=== PATIENT | male | born 1965 | race Caucasian/White ===

== ENCOUNTER 2017-07-05 06:04 | Emergency (ER) | payer OTHER, MEDICARE ==
[2017-07-05 06:08] VITALS: BP 141/89; PULSE 101; RESP 20; TEMP 97.9
[2017-07-05] MEDS ORDERED: MORPHINE SULFATE 4 MG/ML SYRINGE IM STA (06:14)
[2017-07-05] MEDS ORDERED: KETOROLAC 30 MG/ML 1 ML VIAL IM STA (06:14)
--- NOTE | 2017-07-05 06:19 | ED ---
General Adult HPI - General Chief complaint: Back Pain/Injury Stated complaint: Back Pain Time Seen by Provider: 07/05/17 06:06 Source: patient, RN notes reviewed, old records reviewed Mode of arrival: ambulatory Limitations: no limitations - History of Present Illness Initial comments: 52-year-old male with chronic back pain presenting with typical pain complaint. He has been out of his pain medication. 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 He normally takes Opana for his pain. He is not currently on any anti-inflammatories. Denies any new injury. Denies fever or chills. Denies any lower extremity weakness or numbness. No sensory changes. No bowel or bladder issues. He states his pain is unchanged from his chronic back pain. Denies chest pain or shortness of breath. Denies abdominal pain nausea vomiting. - Related Data Home Medications Medication Instructions Recorded Confirmed HYDROcodone/APAP 10-325MG [[place] 1 tab PO DAILY PRN 02/15/17 02/15/17 10-325] Ibuprofen [Motrin] 1,200 mg PO DAILY PRN 02/15/17 02/15/17 Previous Rx's Medication Instructions Recorded HYDROcodone/APAP 5-325MG [[place] 1 - 2 tab PO Q6HR PRN #20 tab 02/15/17 5-325] Ibuprofen [Motrin] 0 mg PO Q4-6H #30 tab 02/15/17 Allergies Allergy/AdvReac Type Severity Reaction Status Date / Time No Known Allergies Allergy Verified 07/05/17 06:08 Review of Systems ROS Statement: Those systems with pertinent positive or pertinent negative responses have been documented in the HPI. ROS Other: All systems not noted in ROS Statement are negative. Past Medical History Past Medical History: Musculoskeletal Disorder, Osteoarthritis (OA), Sleep Apnea /CPAP/BIPAP Additional Past Medical History / Comment(s): supposed to use CPAP, sciatica, back pain, grandpa-colon cancer History of Any Multi-Drug Resistant Organisms: None Reported Past Surgical History: Back Surgery, Joint Replacement, Orthopedic Surgery Additional Past Surgical History / Comment(s): right hip replaced, lung surg. related to pneumonia 2013, 3 toes amputated left foot related to crush injury Past Anesthesia/Blood Transfusion Reactions: No Reported Reaction Past Psychological History: No Psychological Hx Reported Smoking Status: Current every day smoker Past Alcohol Use History: None Reported Past Drug Use History: None Reported - Past Family History Mother Family Medical History: Cancer General Exam Limitations: no limitations General appearance: alert, in no apparent distress Head exam: Present: atraumatic, normocephalic Eye exam: Present: normal appearance, PERRL, EOMI Neck exam: Present: normal inspection. Absent: tenderness, meningismus Respiratory exam: Present: normal lung sounds bilaterally. Absent: respiratory distress, wheezes Cardiovascular Exam: Present: regular rate, normal rhythm GI/Abdominal exam: Present: soft. Absent: distended, tenderness Extremities exam: Present: normal inspection, normal capillary refill. Absent: pedal edema, calf tenderness Back exam: Present: paraspinal tenderness. Absent: vertebral tenderness Neurological exam: Present: alert, oriented X3, CN II-XII intact, normal gait, reflexes normal. Absent: motor sensory deficit Psychiatric exam: Present: normal affect, normal mood Skin exam: Present: warm, dry, intact Course Vital Signs 07/05/17 06:05 Temperature 97.9 F Pulse Rate 101 H Respiratory 20 Rate Blood Pressure 141/89 O2 Sat by Pulse 99 Oximetry Medical Decision Making - Medical Decision Making 52-year-old male with chronic back pain presenting with unchanged chronic back pain and need of medication refill. No alarming features on history or physical exam. Patient is given Toradol and intramuscular morphine in the emergency department. He will be prescribed a three-day course of [place] as well as Motrin. He shouldn't will follow-up with his primary care physician and will continue to make arrangements with a pain specialist. Disposition Clinical Impression: Chronic low back pain Disposition: HOME SELF-CARE Condition: Good Instructions: Chronic Back Pain (ED) Is patient prescribed a controlled substance at d/c from ED?: Yes If prescribed controlled substance>3 days was MAPS reviewed?: Yes When asked, does pt state using other controlled substances?: Yes Referrals: None,Stated [Primary Care Provider] - 1-2 days Tj Pierce MD [STAFF PHYSICIAN] - 1-2 days Time of Disposition: 06:17
== END 2017-07-05 06:27 | disposition home or self-care (01) ==
LOC: EC 06:04
DX: G89.29 Other chronic pain (principal); M54.5 Low back pain; F17.200 Nicotine dependence, unspecified, uncomplicated; Z79.891 Long term (current) use of opiate analgesic; Z98.890 Other specified postprocedural states
CPT/HCPCS: 99284; 96372 ×2; J2270; J1885

== ENCOUNTER 2021-02-13 16:15 | Emergency (ER) | payer BC ==
[2021-02-13 16:26] VITALS: BP 141/86; PULSE 82; RESP 18; TEMP 98.1
--- NOTE | 2021-02-13 16:37 | ED ---
General Adult HPI - General Chief complaint: Shortness of Breath Stated complaint: SOB Time Seen by Provider: 02/13/21 16:23 Source: patient, EMS, RN notes reviewed, old records reviewed Mode of arrival: EMS Limitations: no limitations - History of Present Illness Initial comments: 43-year-old male presenting for evaluation of hypoxia. Patient was seen at an outside clinic with cold-like symptoms. Patient had developed fatigue, vomiting and diarrhea. He was concerned that he had contracted coronavirus and was seeking evaluation at an urgent care. At this urgent care he was noted to be hypoxic in the 60s. He does complain of a mild cough but not significant dyspnea. Chest pain or abdominal pain. No lower extremity pain or swelling. - Related Data Home Medications Medication Instructions Recorded Confirmed Omeprazole 40 mg PO DAILY 12/21/18 12/29/18 DULoxetine HCL [Cymbalta] 30 mg PO HS 12/29/18 12/29/18 Previous Rx's Medication Instructions Recorded Baclofen 5 mg PO Q8H PRN #15 tablet 12/24/18 Naproxen [Naprosyn] 250 mg PO TID #15 tab 12/24/18 Docusate [Colace] 100 mg PO DAILY 10 Days #10 capsule 01/02/19 HYDROcodone/APAP 5-325MG [[place] 1 tab PO Q4HR PRN 3 Days #18 tab 01/02/19 5-325] Allergies Allergy/AdvReac Type Severity Reaction Status Date / Time No Known Allergies Allergy Verified 02/13/21 16:20 Review of Systems ROS Statement: Those systems with pertinent positive or pertinent negative responses have been documented in the HPI. ROS Other: All systems not noted in ROS Statement are negative. Past Medical History Past Medical History: No Reported History History of Any Multi-Drug Resistant Organisms: None Reported Past Surgical History: Back Surgery, Orthopedic Surgery Additional Past Surgical History / Comment(s): Amputation of left foot three toes. right hip replacement. right hand carpal tunnel sx Past Anesthesia/Blood Transfusion Reactions: No Reported Reaction Past Psychological History: No Psychological Hx Reported Smoking Status: Current every day smoker Past Alcohol Use History: Occasional - Past Family History Father Additional Family Medical History / Comment(s): parkinsons/dementia Mother Family Medical History: Thyroid Disorder Additional Family Medical History / Comment(s): pacer Brother(s) Family Medical History: No Reported History Son(s) Family Medical History: No Reported History Daughter(s) Family Medical History: No Reported History General Exam Limitations: no limitations General appearance: alert, in no apparent distress Head exam: Present: atraumatic, normocephalic Eye exam: Present: normal appearance, PERRL ENT exam: Present: mucous membranes dry Neck exam: Present: normal inspection. Absent: tenderness, meningismus Respiratory exam: Present: rales, decreased breath sounds. Absent: respiratory distress Cardiovascular Exam: Present: regular rate, normal rhythm GI/Abdominal exam: Present: soft. Absent: distended, tenderness, guarding Extremities exam: Present: normal inspection, normal capillary refill. Absent: pedal edema, calf tenderness Neurological exam: Present: alert, oriented X3, CN II-XII intact. Absent: motor sensory deficit Psychiatric exam: Present: normal affect, normal mood Skin exam: Present: warm, intact. Absent: cyanosis, diaphoretic Course Vital Signs 02/13/21 02/13/21 16:20 16:27 Temperature 98.1 F Pulse Rate 82 Respiratory 18 Rate Blood Pressure 141/86 O2 Sat by Pulse 85 L 94 L Oximetry EKG Findings - EKG Comments: EKG Findings:: ekg: Normal sinus rhythm, rate of 87, CO interval 172, QRS duration 100, QTC [address] segment elevation. Medical Decision Making - Medical Decision Making Documented in her on the wrong patient, [id number] - Lab Data Result diagrams: 02/13/21 16:42 02/13/21 16:42 Lab Results 02/13/21 02/13/21 02/13/21 Range/Units 16:42 16:42 16:42 WBC 5.2 (3.8-10.6) k/uL RBC 4.48 (4.30-5.90) m/uL Hgb 13.7 (13.0-17.5) gm/dL Hct 42.0 (39.0-53.0) % MCV 93.8 (80.0-100.0) fL MCH 30.6 (25.0-35.0) pg MCHC 32.6 (31.0-37.0) g/dL RDW 13.4 (11.5-15.5) % Plt Count 163 (150-450) k/uL MPV 7.8 Neutrophils % 68 % Lymphocytes % 27 % Monocytes % 4 % Eosinophils % 0 % Basophils % 1 % Neutrophils # 3.5 (1.3-7.7) k/uL Lymphocytes # 1.4 (1.0-4.8) k/uL Monocytes # 0.2 (0-1.0) k/uL Eosinophils # 0.0 (0-0.7) k/uL Basophils # 0.0 (0-0.2) k/uL Poikilocytosis Slight PT 9.7 (9.0-12.0) sec INR 0.9 (<1.2) APTT 25.9 (22.0-30.0) sec D-Dimer 1.09 H (<0.60) mg/L FEU Sodium (137-145) mmol/L Potassium (3.5-5.1) mmol/L Chloride (98-107) mmol/L Carbon Dioxide (22-30) mmol/L Anion Gap mmol/L BUN (9-20) mg/dL Creatinine (0.66-1.25) mg/dL Est GFR (CKD-EPI)AfAm (>60 ml/min/1.73 sqM) Est GFR (CKD-EPI)NonAf (>60 ml/min/1.73 sqM) Glucose (74-99) mg/dL Plasma Lactic Acid Jas (0.7-2.0) mmol/L Calcium (8.4-10.2) mg/dL Magnesium (1.6-2.3) mg/dL Total Bilirubin (0.2-1.3) mg/dL AST (17-59) U/L ALT (4-49) U/L Alkaline Phosphatase (38-126) U/L Troponin I (0.000-0.034) ng/mL NT-Pro-B Natriuret Pep pg/mL Total Protein (6.3-8.2) g/dL Albumin (3.5-5.0) g/dL Coronavirus (PCR) Detected A (Not Detectd) 02/13/21 02/13/21 02/13/21 Range/Units 16:42 16:42 16:42 WBC (3.8-10.6) k/uL RBC (4.30-5.90) m/uL Hgb (13.0-17.5) gm/dL Hct (39.0-53.0) % MCV (80.0-100.0) fL MCH (25.0-35.0) pg MCHC (31.0-37.0) g/dL RDW (11.5-15.5) % Plt Count (150-450) k/uL MPV Neutrophils % % Lymphocytes % % Monocytes % % Eosinophils % % Basophils % % Neutrophils # (1.3-7.7) k/uL Lymphocytes # (1.0-4.8) k/uL Monocytes # (0-1.0) k/uL Eosinophils # (0-0.7) k/uL Basophils # (0-0.2) k/uL Poikilocytosis PT (9.0-12.0) sec INR (<1.2) APTT (22.0-30.0) sec D-Dimer (<0.60) mg/L FEU Sodium 139 (137-145) mmol/L Potassium 3.2 L (3.5-5.1) mmol/L Chloride 98 (98-107) mmol/L Carbon Dioxide 35 H (22-30) mmol/L Anion Gap 6 mmol/L BUN 12 (9-20) mg/dL Creatinine 0.58 L (0.66-1.25) mg/dL Est GFR (CKD-EPI)AfAm >90 (>60 ml/min/1.73 sqM) Est GFR (CKD-EPI)NonAf >90 (>60 ml/min/1.73 sqM) Glucose 137 H (74-99) mg/dL Plasma Lactic Acid Jas 1.8 (0.7-2.0) mmol/L Calcium 7.8 L (8.4-10.2) mg/dL Magnesium 1.9 (1.6-2.3) mg/dL Total Bilirubin 0.7 (0.2-1.3) mg/dL AST 109 H (17-59) U/L ALT 101 H (4-49) U/L Alkaline Phosphatase 163 H (38-126) U/L Troponin I 0.106 H* (0.000-0.034) ng/mL NT-Pro-B Natriuret Pep pg/mL Total Protein 6.3 (6.3-8.2) g/dL Albumin 3.0 L (3.5-5.0) g/dL Coronavirus (PCR) (Not Detectd) 02/13/21 Range/Units 16:42 WBC (3.8-10.6) k/uL RBC (4.30-5.90) m/uL Hgb (13.0-17.5) gm/dL Hct (39.0-53.0) % MCV (80.0-100.0) fL MCH (25.0-35.0) pg MCHC (31.0-37.0) g/dL RDW (11.5-15.5) % Plt Count (150-450) k/uL MPV Neutrophils % % Lymphocytes % % Monocytes % % Eosinophils % % Basophils % % Neutrophils # (1.3-7.7) k/uL Lymphocytes # (1.0-4.8) k/uL Monocytes # (0-1.0) k/uL Eosinophils # (0-0.7) k/uL Basophils # (0-0.2) k/uL Poikilocytosis PT (9.0-12.0) sec INR (<1.2) APTT (22.0-30.0) sec D-Dimer (<0.60) mg/L FEU Sodium (137-145) mmol/L Potassium (3.5-5.1) mmol/L Chloride (98-107) mmol/L Carbon Dioxide (22-30) mmol/L Anion Gap mmol/L BUN (9-20) mg/dL Creatinine (0.66-1.25) mg/dL Est GFR (CKD-EPI)AfAm (>60 ml/min/1.73 sqM) Est GFR (CKD-EPI)NonAf (>60 ml/min/1.73 sqM) Glucose (74-99) mg/dL Plasma Lactic Acid Jas (0.7-2.0) mmol/L Calcium (8.4-10.2) mg/dL Magnesium (1.6-2.3) mg/dL Total Bilirubin (0.2-1.3) mg/dL AST (17-59) U/L ALT (4-49) U/L Alkaline Phosphatase (38-126) U/L Troponin I (0.000-0.034) ng/mL NT-Pro-B Natriuret Pep 1400 pg/mL Total Protein (6.3-8.2) g/dL Albumin (3.5-5.0) g/dL Coronavirus (PCR) (Not Detectd) Disposition Referrals: Brian Salvador MD [Primary Care Provider] - 1-2 days
[2021-02-13 16:50] LABS: Basophils % (A) 1 %; Eosinophils % (A) 0 %; HGB 13.7 gm/dL (13.0-17.5); Lymphocytes # (A) 1.4 k/uL (1.0-4.8); Lymphocytes % (A) 27 %; MCH 30.6 pg (25.0-35.0); MCHC 32.6 g/dL (31.0-37.0); MCV 93.8 fL (80.0-100.0); Mean Platelet Volume 7.8; Monocytes # (A) 0.2 k/uL (0-1.0); Monocytes % (A) 4 %; Neutrophils # (A) 3.5 k/uL (1.3-7.7); Neutrophils % (A) 68 %; Platelet Count 163 k/uL (150-450); Poikilocytosis Slight; RBC 4.48 m/uL (4.30-5.90); RDW 13.4 % (11.5-15.5); WBC 5.2 k/uL (3.8-10.6)
[2021-02-13 16:59] LABS: ALT 101 U/L (4-49); AST 109 U/L (17-59); African American GFR (CKD) >90 (>60 ml/min/1.73 sqM); Alkaline Phosphatase 163 U/L (38-126); Anion Gap 6 mmol/L; Blood Urea Nitrogen 12 mg/dL (9-20); Calcium 7.8 mg/dL (8.4-10.2); Carbon Dioxide 35 mmol/L (22-30); Chloride 98 mmol/L (98-107); Glucose 137 mg/dL (74-99); Magnesium 1.9 mg/dL (1.6-2.3); Non-African American GFR(CKD) >90 (>60 ml/min/1.73 sqM); Potassium 3.2 mmol/L (3.5-5.1); Sodium 139 mmol/L (137-145); Total Bilirubin 0.7 mg/dL (0.2-1.3); Total Protein 6.3 g/dL (6.3-8.2)
[2021-02-13] MEDS ORDERED: DEXAMETHASONE SOD PHOSPHATE 10 MG/ML 1 ML VIAL IV STA (16:59)
[2021-02-13] MEDS ORDERED: SODIUM CHLORIDE 0.9% 1,000 ML IV ONE (16:59)
[2021-02-13 17:03] LABS: INR 0.9 (<1.2); Partial Thromboplastin Time 25.9 sec (22.0-30.0); Prothrombin Time 9.7 sec (9.0-12.0)
== END 2021-02-13 19:01 ==
LOC: EDBD → EDUNIT# 16:15 → EC 16:15
DX: Z53.21 Procedure and treatment not carried out due to patient leaving prior to being seen by health care provider (principal)
CPT/HCPCS: 36415; 80053; 83605; 83735; 83880; 84484; 85025; 85379; 85610; 85730; 87635; 99499

== ENCOUNTER 2021-02-13 17:12 | Inpatient (IN) | payer MEDICARE, OTHER ==
[2021-02-13] MEDS ORDERED: IBUPROFEN 400 MG TAB PO PRN (17:21)
[2021-02-13] MEDS ORDERED: NALOXONE 0.4 MG/ML 1 ML VIAL IV PRN (17:21)
[2021-02-13] MEDS ORDERED: ONDANSETRON 4 MG/2 ML VIAL IVP PRN (17:21)
[2021-02-13] MEDS ORDERED: ACETAMINOPHEN TAB 325 MG TAB PO PRN (17:21)
[2021-02-13] MEDS ORDERED: ASPIRIN 325 MG TAB PO STA (17:22)
[2021-02-13] MEDS ORDERED: DEXAMETHASONE SOD PHOSPHATE 10 MG/ML 1 ML VIAL IV STA (17:27)
[2021-02-13] MEDS ORDERED: SODIUM CHLORIDE 0.9% 1,000 ML IV ONE (17:27)
[2021-02-13] MEDS ORDERED: ACETAMINOPHEN TAB 500 MG TAB PO STA (17:27)
--- NOTE | 2021-02-13 17:33 | ED ---
General Adult HPI - General Stated complaint: SOB Time Seen by Provider: 02/13/21 17:16 Source: patient, EMS, RN notes reviewed, old records reviewed - History of Present Illness Initial comments: 55-year-old male presenting for evaluation of hypoxia. Patient was seen at an outside clinic with cold-like symptoms. Patient had developed fatigue, vomiting and diarrhea. He was concerned that he had contracted coronavirus and was seeking evaluation at an urgent care. At this urgent care he was noted to be hypoxic in the 60s. He does complain of a mild cough but not significant dyspnea. Chest pain or abdominal pain. No lower extremity pain or swelling. - Related Data Home Medications Medication Instructions Recorded Confirmed Methadone Unknown Dose 140 mg PO DAILY 02/13/21 02/13/21 Allergies Allergy/AdvReac Type Severity Reaction Status Date / Time No Known Allergies Allergy Verified 02/13/21 18:05 Review of Systems ROS Statement: Those systems with pertinent positive or pertinent negative responses have been documented in the HPI. ROS Other: All systems not noted in ROS Statement are negative. Past Medical History Past Medical History: Musculoskeletal Disorder, Osteoarthritis (OA), Sleep Apnea/CPAP/BIPAP Additional Past Medical History / Comment(s): supposed to use CPAP, sciatica,back pain, grandpa-colon cancer History of Any Multi-Drug Resistant Organisms: None Reported Past Surgical History: Back Surgery, Joint Replacement, Orthopedic Surgery Additional Past Surgical History / Comment(s): right hip replaced, lung surg. related to pneumonia 2013, 3 toes amputated left foot related to crush injury Past Anesthesia/Blood Transfusion Reactions: No Reported Reaction Past Psychological History: No Psychological Hx Reported Past Alcohol Use History: None Reported Past Drug Use History: None Reported - Past Family History Mother Family Medical History: Cancer General Exam General appearance: alert, in distress Head exam: Present: atraumatic, normocephalic Eye exam: Present: normal appearance, PERRL ENT exam: Present: normal exam Neck exam: Present: normal inspection. Absent: tenderness, meningismus Respiratory exam: Present: respiratory distress, rales, decreased breath sounds Cardiovascular Exam: Present: regular rate, normal rhythm GI/Abdominal exam: Present: soft. Absent: distended, tenderness, guarding Extremities exam: Present: normal inspection, normal capillary refill. Absent: pedal edema Neurological exam: Present: alert, oriented X3, CN II-XII intact. Absent: motor sensory deficit Psychiatric exam: Present: normal affect, normal mood Skin exam: Present: warm, dry, intact. Absent: cyanosis, diaphoretic Course Vital Signs 02/13/21 17:43 Temperature 97.9 F Pulse Rate 76 Respiratory 20 Rate Blood Pressure 101/66 O2 Sat by Pulse 92 L Oximetry Medical Decision Making - Medical Decision Making 55-year-old male with Covid-like symptoms for the past one week. Patient tests positive for coronavirus. He has a normal CBC, he has an elevated d-dimer at 1.09. CT angiography has been ordered. laboratory studies were initially placed in a long patient count, he had a hypokalemia of 3.2. Normal kidney function, mild transaminitis, elevated troponin which is likely from hypoxia and demand. This level will be trended. Case discussed with Dr. Recio, who will admit. Repeat laboratory testing pending Critical Care Time Critical Care Time: Yes Total Critical Care Time: 35 Disposition Clinical Impression: COVID-19, Hypoxia Disposition: ADMITTED IP TO THIS [facility] Condition: Serious Is patient prescribed a controlled substance at d/c from ED?: No Referrals: None,Stated [Primary Care Provider] - 1-2 days Decision to Admit Reason: Admit from EC Decision Date: 02/13/21 Decision Time: 17:33
--- NOTE | 2021-02-13 17:42 | XR ---
EXAMINATION TYPE: XR chest 1V portable DATE OF EXAM: 02/13/2021 COMPARISON: 12/17/2012 HISTORY: Short of breath TECHNIQUE: Single view FINDINGS: There is moderate pulmonary interstitial and airspace edema. Heart is enlarged. There is pr obably right pleural effusion. Trachea is midline. Bony thorax is intact. IMPRESSION: There is moderately severe pulmonary edema which is new compared to last exam. There is r emoval of the right side chest tubes compared to old exam. Appearance of the lungs could relate to RD S. Heart failure not excluded.
--- NOTE | 2021-02-13 18:04 | CT ---
EXAMINATION TYPE: CT angio chest DATE OF EXAM: 02/13/2021 COMPARISON: 12/16/2012 HISTORY: Shortness of breath. CT DLP: 1000.2 mGycm Automated exposure control for dose reduction was used. CONTRAST: Performed with IV Contrast, patient injected with 100 mL of Isovue 370. There are 3-D post processed images. There is extensive patchy predominantly interstitial infiltrates in both lung amaya. There is some m ild nodular component at the periphery of both lungs. Heart appears borderline enlarged. There is no pericardial effusion. There are enlarged mediastinal lymph nodes up to 2.3 cm. There are multiple enl arged bronchial lymph nodes up to 1.5 cm. I see no evidence of filling defect in the pulmonary arteries. Thoracic aorta is intact. There is no aneurysm or dissection. There is no significant pleural fluid. Upper abdominal soft tissues are intac t. IMPRESSION: Mediastinal and bronchial adenopathy. Extensive pulmonary infiltrates. No evidence of pulmonary embol ism. There is clearing of the consolidation in the right lung and the right pleural effusion compared to o ld exam. There is a more diffuse pattern of the pulmonary infiltrate on today's exam. Mediastinal and bronchial adenopathy probably slightly improved compared to old exam.
[2021-02-13] MEDS ORDERED: ENOXAPARIN 40 MG/0.4 ML SYRINGE SQ STA (18:06)
[2021-02-13 19:29] LABS: Basophils % (A) 1 %; Eosinophils % (A) 0 %; HCT 39.8 % (39.0-53.0); HGB 12.9 gm/dL (13.0-17.5); Lymphocytes # (A) 1.1 k/uL (1.0-4.8); Lymphocytes % (A) 19 %; MCH 30.7 pg (25.0-35.0); MCHC 32.3 g/dL (31.0-37.0); MCV 94.8 fL (80.0-100.0); Mean Platelet Volume 7.5; Monocytes # (A) 0.2 k/uL (0-1.0); Monocytes % (A) 3 %; Neutrophils # (A) 4.2 k/uL (1.3-7.7); Neutrophils % (A) 76 %; Platelet Count 175 k/uL (150-450); Poikilocytosis Slight; RDW 13.9 % (11.5-15.5); WBC 5.6 k/uL (3.8-10.6)
[2021-02-13 19:34] LABS: ALT 96 U/L (4-49); AST 100 U/L (17-59); African American GFR (CKD) >90 (>60 ml/min/1.73 sqM); Albumin 2.7 g/dL (3.5-5.0); Alkaline Phosphatase 142 U/L (38-126); Anion Gap 5 mmol/L; Blood Urea Nitrogen 11 mg/dL (9-20); Calcium 7.4 mg/dL (8.4-10.2); Carbon Dioxide 35 mmol/L (22-30); Chloride 99 mmol/L (98-107); Glucose 100 mg/dL (74-99); Non-African American GFR(CKD) >90 (>60 ml/min/1.73 sqM); Potassium 3.5 mmol/L (3.5-5.1); Sodium 139 mmol/L (137-145); Total Bilirubin 0.4 mg/dL (0.2-1.3); Total Protein 5.7 g/dL (6.3-8.2)
--- NOTE | 2021-02-13 19:57 | P.HPIM ---
History of Present Illness H&P Date: 02/13/21 55-year-old male presenting for evaluation of hypoxia. Patient was seen at an outside clinic with cold-like symptoms. Patient had developed fatigue, vomiting and diarrhea. He was concerned that he had contracted coronavirus and was seeking evaluation at an urgent care. At this urgent care he was noted to be hypoxic in the 60s. He does complain of a mild cough but not significant dyspnea. Chest pain or abdominal pain. No lower extremity pain or swelling. Patient feels okay at this time Feels better after starting on oxygen Review of systems and systems has been reviewed all negative and positive findings as per history of present illness Constitutional: No acute distress, conversant, pleasant Eyes: Anicteric sclerae, moist conjunctiva, no lid-lag PERRLA ENMT: NC/AT Oropharynx clear, no erythema, exudates Neck: Supple, FROM, no masses, or JVD No carotid bruits No thyromegaly Lungs: , no accessory muscle use Cardiovascular: No peripheral edema Abdominal: Soft Nontender, no guarding, rebound or rigidity Abdomen moving with respiration Normoactive bowel sounds No hepatomegaly, No splenomegaly No palpable mass No abdominal wall hernia noted Skin: Normal temperature, tone, texture, turgor No induration No subcutaneous nodules No rash, lesions No ulcers Extremities: No digital cyanosis No clubbing Pedal pulses intact and symmetrical Radial pulses intact and symmetrical Normal gait and station No calf tenderness Psychiatric:Alert and oriented to person, place and time Appropriate affect Intact judgement Neuro: Muscles Strength 5/5 in all 4 extremities Sensation to light touch grossly present throughout Cranial nerves II-XII grossly intact No focal sensory deficits COVID-19 pneumonia we'll continue patient on Rocephin and Zithromax pulmonology has been consulted Continue patient on Decadron Acute hypoxic respiratory failure due to COVID-19 pneumonia Obesity No evidence of PE per CT scan DVT and GI prophylaxis Minimally elevated troponin is likely demand ischemia we will also consult cardiology with the patient on telemetry and repeat troponin Past Medical History Past Medical History: Musculoskeletal Disorder, Osteoarthritis (OA), Sleep Apnea/CPAP/BIPAP Additional Past Medical History / Comment(s): supposed to use CPAP, sciatica,back pain, grandpa-colon cancer History of Any Multi-Drug Resistant Organisms: None Reported Past Surgical History: Back Surgery, Joint Replacement, Orthopedic Surgery Additional Past Surgical History / Comment(s): right hip replaced, lung surg. related to pneumonia 2013, 3 toes amputated left foot related to crush injury Past Anesthesia/Blood Transfusion Reactions: No Reported Reaction Past Psychological History: No Psychological Hx Reported Past Alcohol Use History: None Reported Past Drug Use History: None Reported - Past Family History Mother Family Medical History: Cancer Medications and Allergies Home Medications Medication Instructions Recorded Confirmed Type Methadone Unknown Dose 140 mg PO DAILY 02/13/21 02/13/21 History Allergies Allergy/AdvReac Type Severity Reaction Status Date / Time No Known Allergies Allergy Verified 02/13/21 18:05 Physical Exam Vitals: Vital Signs Temp Pulse Resp BP Pulse Ox 02/13/21 17:43 97.9 F 76 20 101/66 92 L Intake and Output 02/13/21 02/13/21 02/13/21 06:59 14:59 22:59 Other: Weight 136.078 kg Results CBC & Chem 7: 02/13/21 19:24 02/13/21 19:24 Labs: Abnormal Lab Results - Last 24 Hours (Table) 02/13/21 02/13/21 02/13/21 Range/Units 19:01 19:24 19:24 RBC 4.20 L (4.30-5.90) m/uL Hgb 12.9 L (13.0-17.5) gm/dL Carbon Dioxide 35 H (22-30) mmol/L Creatinine 0.53 L (0.66-1.25) mg/dL Glucose 100 H (74-99) mg/dL Calcium 7.4 L (8.4-10.2) mg/dL AST 100 H (17-59) U/L ALT 96 H (4-49) U/L Alkaline Phosphatase 142 H (38-126) U/L Troponin I 0.093 H* (0.000-0.034) ng/mL Total Protein 5.7 L (6.3-8.2) g/dL Albumin 2.7 L (3.5-5.0) g/dL
[2021-02-13] MEDS: SODIUM CHLORIDE 0.9% 1,000 ML IV SCH (20:28)
[2021-02-13] MEDS: AZITHROMYCIN 500 MG in SODIUM CHLORIDE 0.9% 250 ML IVPB SCH (21:37)
[2021-02-14 07:29] LABS: Basophils % (A) 0 %; Eosinophils % (A) 0 %; HCT 40.1 % (39.0-53.0); HGB 12.7 gm/dL (13.0-17.5); Lymphocytes # (A) 0.8 k/uL (1.0-4.8); Lymphocytes % (A) 24 %; MCHC 31.6 g/dL (31.0-37.0); MCV 94.7 fL (80.0-100.0); Mean Platelet Volume 7.7; Monocytes # (A) 0.1 k/uL (0-1.0); Monocytes % (A) 3 %; Neutrophils # (A) 2.3 k/uL (1.3-7.7); Neutrophils % (A) 71 %; Platelet Count 174 k/uL (150-450); RBC 4.23 m/uL (4.30-5.90); RDW 13.5 % (11.5-15.5); WBC 3.3 k/uL (3.8-10.6)
[2021-02-14 07:42] LABS: ALT 85 U/L (4-49); AST 79 U/L (17-59); African American GFR (CKD) >90 (>60 ml/min/1.73 sqM); Albumin 2.8 g/dL (3.5-5.0); Alkaline Phosphatase 143 U/L (38-126); Anion Gap 5 mmol/L; Blood Urea Nitrogen 10 mg/dL (9-20); Calcium 7.5 mg/dL (8.4-10.2); Carbon Dioxide 34 mmol/L (22-30); Chloride 102 mmol/L (98-107); Glucose 135 mg/dL (74-99); Non-African American GFR(CKD) >90 (>60 ml/min/1.73 sqM); Potassium 3.8 mmol/L (3.5-5.1); Sodium 141 mmol/L (137-145); Total Bilirubin 0.5 mg/dL (0.2-1.3)
[2021-02-14] MEDS: DEXAMETHASONE SOD PHOSPHATE 10 MG/ML 1 ML VIAL IVP SCH (09:21)
[2021-02-14] MEDS: ENOXAPARIN 40 MG/0.4 ML SYRINGE SQ SCH (09:21)
[2021-02-14] MEDS: SODIUM CHLORIDE 0.9% 1,000 ML IV SCH (09:30)
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
--- NOTE | 2021-02-14 12:07 | P.PN ---
Subjective Progress Note Date: 02/14/21 No new complaints today. 6 L oxygen requirement, saturating 94%. Does not appear to be in distress. Coached on nutrition and self pronating today. Objective - Vital Signs Vital signs: Vital Signs Temp 98.2 F 02/14/21 03:20 Pulse 82 02/14/21 03:20 Resp 20 02/14/21 03:20 BP 147/88 02/14/21 03:20 Pulse Ox 94 L 02/14/21 03:20 Intake & Output 02/13/21 02/14/21 02/14/21 18:59 06:59 18:59 Intake Total 50 240 Output Total 1450 200 Balance -1400 40 Weight 136.078 kg 150.5 kg Intake: Oral 50 240 Output: Urine 1450 200 - Exam Gen: awake, alert HEENT: normocephalic, atraumatic, good hearing acuity, moist mucous membranes Resp: good air exchange, breathing comfortably with no accessory muscle use CVS: good distal perfusion x 4, GI: soft, NTTP, ND : no SPT, no CVAT, ramirez catheter not present MSK: no pitting edema, no clubbing Neuro: non-focal, moving all extremities Psych: cooperative, euthymic mood - Labs CBC & Chem 7: 02/14/21 06:43 02/14/21 06:43 Labs: Abnormal Lab Results - Last 24 Hours (Table) 02/13/21 02/13/21 02/13/21 Range/Units 19:01 19:24 19:24 WBC (3.8-10.6) k/uL RBC 4.20 L (4.30-5.90) m/uL Hgb 12.9 L (13.0-17.5) gm/dL Lymphocytes # (1.0-4.8) k/uL Carbon Dioxide 35 H (22-30) mmol/L Creatinine 0.53 L (0.66-1.25) mg/dL Glucose 100 H (74-99) mg/dL Calcium 7.4 L (8.4-10.2) mg/dL AST 100 H (17-59) U/L ALT 96 H (4-49) U/L Alkaline Phosphatase 142 H (38-126) U/L Troponin I 0.093 H* (0.000-0.034) ng/mL Total Protein 5.7 L (6.3-8.2) g/dL Albumin 2.7 L (3.5-5.0) g/dL 02/14/21 02/14/21 Range/Units 06:43 06:43 WBC 3.3 L (3.8-10.6) k/uL RBC 4.23 L (4.30-5.90) m/uL Hgb 12.7 L (13.0-17.5) gm/dL Lymphocytes # 0.8 L (1.0-4.8) k/uL Carbon Dioxide 34 H (22-30) mmol/L Creatinine 0.49 L (0.66-1.25) mg/dL Glucose 135 H (74-99) mg/dL Calcium 7.5 L (8.4-10.2) mg/dL AST 79 H (17-59) U/L ALT 85 H (4-49) U/L Alkaline Phosphatase 143 H (38-126) U/L Troponin I (0.000-0.034) ng/mL Total Protein 6.0 L (6.3-8.2) g/dL Albumin 2.8 L (3.5-5.0) g/dL Assessment and Plan Assessment: ARDS secondary to Covid 19 Acute hypoxemic respiratory failure -Admit to inpatient, telemetry, contact/droplet -Pulmonary consult -Dexamethasone -On IV antibiotics, pending pro-calcitonin level -Vitamin C/D, zinc -Daily inflammatory labs -Oxygen as needed Obesity class III Chronic pain -Outpatient weight loss referral -Resume home dose of methadone Patient is a full code DVT prophylaxis with enoxaparin
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
[2021-02-14] MEDS: AZITHROMYCIN 500 MG in SODIUM CHLORIDE 0.9% 250 ML IVPB SCH (12:35)
[2021-02-14] MEDS: METHADONE 10 MG TAB PO SCH (12:42)
[2021-02-14] MEDS: ASCORBIC ACID 500 MG TAB PO SCH (12:42)
[2021-02-14] MEDS: CHOLECALCIFEROL 25 MCG (1000 IU) TABLET PO SCH (12:42)
[2021-02-14] MEDS: ZINC SULFATE 220 MG CAP PO SCH (12:42)
[2021-02-14] MEDS: lisinopriL 5 MG TAB PO SCH (12:42)
[2021-02-14 13:00] LABS: C Reactive Protein 5.2 mg/dL (<1.0)
[2021-02-15] MEDS: SODIUM CHLORIDE 0.9% 1,000 ML IV SCH ×3 (03:46→22:07)
[2021-02-15 06:52] LABS: Basophils % (A) 0 %; Eosinophils % (A) 0 %; HCT 38.1 % (39.0-53.0); HGB 11.9 gm/dL (13.0-17.5); Lymphocytes % (A) 18 %; MCH 29.6 pg (25.0-35.0); MCHC 31.1 g/dL (31.0-37.0); MCV 95.2 fL (80.0-100.0); Mean Platelet Volume 7.8; Monocytes # (A) 0.4 k/uL (0-1.0); Monocytes % (A) 7 %; Neutrophils # (A) 4.2 k/uL (1.3-7.7); Neutrophils % (A) 72 %; Platelet Count 229 k/uL (150-450); RDW 13.4 % (11.5-15.5); WBC 5.8 k/uL (3.8-10.6)
[2021-02-15 07:45] LABS: ALT 67 U/L (4-49); AST 48 U/L (17-59); African American GFR (CKD) >90 (>60 ml/min/1.73 sqM); Alkaline Phosphatase 125 U/L (38-126); Anion Gap 6 mmol/L; Bilirubin, Delta 0.2 mg/dL (0.0-0.2); Bilirubin,Unconjugated 0.2 mg/dL (0.0-1.1); Blood Urea Nitrogen 15 mg/dL (9-20); C Reactive Protein 2.6 mg/dL (<1.0); Calcium 7.9 mg/dL (8.4-10.2); Carbon Dioxide 34 mmol/L (22-30); Chloride 101 mmol/L (98-107); Glucose 109 mg/dL (74-99); LDH 1028 U/L (313-618); Magnesium 2.1 mg/dL (1.6-2.3); Non-African American GFR(CKD) >90 (>60 ml/min/1.73 sqM); Potassium 3.8 mmol/L (3.5-5.1); Sodium 141 mmol/L (137-145); Total Bilirubin 0.4 mg/dL (0.2-1.3); Total Protein 6.2 g/dL (6.3-8.2)
[2021-02-15] MEDS: AZITHROMYCIN 500 MG in SODIUM CHLORIDE 0.9% 250 ML IVPB SCH (10:07)
[2021-02-15] MEDS: DEXAMETHASONE SOD PHOSPHATE 10 MG/ML 1 ML VIAL IVP SCH (10:08)
[2021-02-15] MEDS: FUROSEMIDE 10 MG/ML 4 ML VIAL IV SCH (10:08)
[2021-02-15] MEDS: METHADONE 10 MG TAB PO SCH (10:09)
[2021-02-15] MEDS: ZINC SULFATE 220 MG CAP PO SCH (10:09)
[2021-02-15] MEDS: CHOLECALCIFEROL 25 MCG (1000 IU) TABLET PO SCH (10:09)
[2021-02-15] MEDS: lisinopriL 5 MG TAB PO SCH (10:09)
[2021-02-15] MEDS: ENOXAPARIN 40 MG/0.4 ML SYRINGE SQ SCH (10:14)
[2021-02-15] MEDS: ASCORBIC ACID 500 MG TAB PO SCH (10:16)
--- NOTE | 2021-02-15 10:33 | P.PN ---
Subjective Progress Note Date: 02/15/21 No new complaints today. BNP was elevated, PC was high. Echo and lasix ordered. Cardiology following. Objective - Vital Signs Vital signs: Vital Signs Temp 97.6 F 02/15/21 03:55 Pulse 67 02/15/21 03:55 Resp 20 02/15/21 03:55 BP 146/73 02/15/21 03:55 Pulse Ox 92 L 02/15/21 03:55 Intake & Output 02/14/21 02/15/21 02/15/21 18:59 06:59 18:59 Intake Total 760 1587 118 Output Total 1100 1350 Balance -340 237 118 Intake: IV 20 Invasive Line 2 20 Intake, IV Titration 750 Amount Sodium Chloride 0.9% 1, 750 000 ml @ 75 mls/hr IV . [id number] Rx#:[id number] Oral 740 837 118 Output: Urine 1100 1350 - Exam Gen: awake, alert HEENT: normocephalic, atraumatic, good hearing acuity, moist mucous membranes Resp: good air exchange, breathing comfortably with no accessory muscle use CVS: good distal perfusion x 4, GI: soft, NTTP, ND : no SPT, no CVAT, ramirez catheter not present MSK: no pitting edema, no clubbing Neuro: non-focal, moving all extremities Psych: cooperative, euthymic mood - Labs CBC & Chem 7: 02/15/21 05:39 02/15/21 05:39 Labs: Abnormal Lab Results - Last 24 Hours (Table) 02/14/21 02/14/21 02/14/21 Range/Units 06:43 10:20 11:47 RBC (4.30-5.90) m/uL Hgb (13.0-17.5) gm/dL Hct (39.0-53.0) % D-Dimer 1.52 H (<0.60) mg/L FEU Carbon Dioxide (22-30) mmol/L Creatinine (0.66-1.25) mg/dL Glucose (74-99) mg/dL Calcium (8.4-10.2) mg/dL ALT (4-49) U/L Lactate Dehydrogenase (313-618) U/L Troponin I 0.040 H* (0.000-0.034) ng/mL C-Reactive Protein (<1.0) mg/dL Total Protein (6.3-8.2) g/dL Albumin (3.5-5.0) g/dL Procalcitonin 3.09 H (0.02-0.09) ng/mL Coronavirus (PCR) (Not Detectd) 02/14/21 02/14/21 02/15/21 Range/Units 11:47 18:04 05:39 RBC 4.00 L (4.30-5.90) m/uL Hgb 11.9 L (13.0-17.5) gm/dL Hct 38.1 L (39.0-53.0) % D-Dimer (<0.60) mg/L FEU Carbon Dioxide (22-30) mmol/L Creatinine (0.66-1.25) mg/dL Glucose (74-99) mg/dL Calcium (8.4-10.2) mg/dL ALT (4-49) U/L Lactate Dehydrogenase 1444 H (313-618) U/L Troponin I (0.000-0.034) ng/mL C-Reactive Protein 5.2 H (<1.0) mg/dL Total Protein (6.3-8.2) g/dL Albumin (3.5-5.0) g/dL Procalcitonin (0.02-0.09) ng/mL Coronavirus (PCR) Detected A (Not Detectd) 02/15/21 02/15/21 Range/Units 05:39 05:39 RBC (4.30-5.90) m/uL Hgb (13.0-17.5) gm/dL Hct (39.0-53.0) % D-Dimer 1.32 H (<0.60) mg/L FEU Carbon Dioxide 34 H (22-30) mmol/L Creatinine 0.48 L (0.66-1.25) mg/dL Glucose 109 H (74-99) mg/dL Calcium 7.9 L (8.4-10.2) mg/dL ALT 67 H (4-49) U/L Lactate Dehydrogenase 1028 H (313-618) U/L Troponin I (0.000-0.034) ng/mL C-Reactive Protein 2.6 H (<1.0) mg/dL Total Protein 6.2 L (6.3-8.2) g/dL Albumin 3.0 L (3.5-5.0) g/dL Procalcitonin (0.02-0.09) ng/mL Coronavirus (PCR) (Not Detectd) Assessment and Plan Assessment: ARDS secondary to Covid 19 Acute hypoxemic respiratory failure Acute on Chronic Heart Failure, unspecified EF, echo pending -Admit to inpatient, telemetry, contact/droplet -Pulmonary consult -Dexamethasone -On IV antibiotics, pending pro-calcitonin level -Vitamin C/D, zinc -Daily inflammatory labs -Oxygen as needed -echo pending -lasix 40mg IV daily -cardiology following Obesity class III Chronic pain -Outpatient weight loss referral -Resume home dose of methadone Patient is a full code DVT prophylaxis with enoxaparin
--- NOTE | 2021-02-15 12:37 | P.PN ---
Subjective Progress Note Date: 02/15/21 Principal diagnosis: This is a 55-year-old male patient with a known history of chronic pain issues and is maintained on methadone in the outpatient setting. He states he's been a ttending a clinic that is requiring [id number] meetings in order to keep his methadone prescription. While there he mentioned he was having cold-like symptoms and had developed fatigue, nausea and diarrhea. He was found to be hypoxemic with O2 saturations in the 60s. He was referred here to the emergency room for the same. He denied any significant shortness of breath cough or congestion. No chest pain. He states his original symptoms started about 2 weeks ago now. He did test positive for Carter virus by PCR. Chest x-ray reveals moderate pulmonary interstitial and airspace edema/infiltrate. CT angiogram revealed no evidence of pulmonary embolism. There is mediastinal bronchial adenopathy. There is extensive pulmonary infiltrates. Of note, the patient had a previous empyema requiring surgery and chest tube placement back in 2012. He is currently on 6 L high flow nasal cannula to maintain O2 saturation in the 90s. He is a smoker. He is not vaccinated. Outside the window for Remdesivir. He's been initiated on antibiotics per medicine. He is on Decadron, Lovenox. The patient is seen today 02/15/2021 in follow-up on the selective care unit. He is currently resting quite comfortably in bed. Actually laying flat. Denies any worsening shortness of breath, cough or congestion. He is requiring 6 L high flow nasal cannula to maintain O2 saturations in the 90s. No fever or chills. White count 5.8. Hemoglobin 11.9. D-dimer 1.32. Sodium 141. Potassium 3.8. Creatinine 0.48. LDH 1028. C-reactive protein 2.6. Procalcitonin 3.09. He remains on ceftriaxone and azithromycin. Continued on Decadron, Lovenox, vitamin supplements. He's been initiated on IV diuretics. Objective - Vital Signs Vital signs: Vital Signs Temp 98.2 F 02/15/21 07:30 Pulse 67 02/15/21 07:30 Resp 20 02/15/21 08:00 BP 148/75 02/15/21 07:30 Pulse Ox 91 L 02/15/21 07:30 Intake & Output 12/02/15/21 02/15/21 18:59 06:59 18:59 Intake Total 760 1587 128 Output Total 1100 1350 Balance -340 237 128 Weight 150.3 kg Intake: IV 20 10 Invasive Line 2 20 10 Intake, IV Titration 750 Amount Sodium Chloride 0.9% 1, 750 000 ml @ 75 mls/hr IV . [id number] [facility] Rx#:[id number] Oral 740 837 118 Output: Urine 1100 1350 - Exam GENERAL EXAM: Alert, pleasant 55-year-old gentleman, on 6 L nasal cannula comfortable in no apparent distress. HEAD: Normocephalic. EYES: Normal reaction of pupils, equal size. NOSE: Clear with pink turbinates. THROAT: No erythema or exudates. NECK: No masses, no JVD. CHEST: No chest wall deformity. LUNGS: Equal air entry with crackles in the bilateral bases. CVS: S1 and S2 normal with no audible murmur, regular rhythm. ABDOMEN: No hepatosplenomegaly, normal bowel sounds, no guarding or rigidity. SPINE: No scoliosis or deformity SKIN: No rashes CENTRAL NERVOUS SYSTEM: No focal deficits, tone is normal in all 4 extremities. EXTREMITIES: There is no peripheral edema. No clubbing, no cyanosis. Peripheral pulses are intact. - Labs CBC & Chem 7: 02/15/21 05:39 02/15/21 05:39 Labs: Abnormal Lab Results - Last 24 Hours (Table) 02/14/21 02/14/21 02/14/21 Range/Units 06:43 11:47 11:47 RBC (4.30-5.90) m/uL Hgb (13.0-17.5) gm/dL Hct (39.0-53.0) % D-Dimer 1.52 H (<0.60) mg/L FEU Carbon Dioxide (22-30) mmol/L Creatinine (0.66-1.25) mg/dL Glucose (74-99) mg/dL Calcium (8.4-10.2) mg/dL ALT (4-49) U/L Lactate Dehydrogenase 1444 H (313-618) U/L C-Reactive Protein 5.2 H (<1.0) mg/dL Total Protein (6.3-8.2) g/dL Albumin (3.5-5.0) g/dL Procalcitonin 3.09 H (0.02-0.09) ng/mL Coronavirus (PCR) (Not Detectd) 02/14/21 02/15/21 02/15/21 Range/Units 18:04 05:39 05:39 RBC 4.00 L (4.30-5.90) m/uL Hgb 11.9 L (13.0-17.5) gm/dL Hct 38.1 L (39.0-53.0) % D-Dimer 1.32 H (<0.60) mg/L FEU Carbon Dioxide (22-30) mmol/L Creatinine (0.66-1.25) mg/dL Glucose (74-99) mg/dL Calcium (8.4-10.2) mg/dL ALT (4-49) U/L Lactate Dehydrogenase (313-618) U/L C-Reactive Protein (<1.0) mg/dL Total Protein (6.3-8.2) g/dL Albumin (3.5-5.0) g/dL Procalcitonin (0.02-0.09) ng/mL Coronavirus (PCR) Detected A (Not Detectd) 02/15/21 Range/Units 05:39 RBC (4.30-5.90) m/uL Hgb (13.0-17.5) gm/dL Hct (39.0-53.0) % D-Dimer (<0.60) mg/L FEU Carbon Dioxide 34 H (22-30) mmol/L Creatinine 0.48 L (0.66-1.25) mg/dL Glucose 109 H (74-99) mg/dL Calcium 7.9 L (8.4-10.2) mg/dL ALT 67 H (4-49) U/L Lactate Dehydrogenase 1028 H (313-618) U/L C-Reactive Protein 2.6 H (<1.0) mg/dL Total Protein 6.2 L (6.3-8.2) g/dL Albumin 3.0 L (3.5-5.0) g/dL Procalcitonin (0.02-0.09) ng/mL Coronavirus (PCR) (Not Detectd) Assessment and Plan Assessment: 1 Acute hypoxemic respiratory failure secondary to COVID-19 pneumonia. Outside the window for Remdesivir. Currently on 6 L high flow nasal cannula. Not qualifying for Baricitinib. Not vaccinated. Elevated pro calcitonin and remains on azithromycin and ceftriaxone. 2 Chronic pain secondary to osteoarthritis and several orthopedic surgeries receiving methadone in the outpatient setting 3 Chronic tobacco dependence 4 Previous history of suspected empyema of the right lung requiring surgery and chest tube placement back in 2012 5 Obstructive sleep apnea, not on CPAP 6 Troponin leak Plan: The patient was seen and evaluated today Continue Lovenox, Decadron, vitamin supplements Elevated pro-calcitonin, continued on ceftriaxone and azithromycin Elevated proBNP, initiated on IV Lasix Echocardiogram pending Titrate the FiO2 as tolerated We will continue to follow I, the cosigning physician, performed a history & physical examination of the patient. Lungs sounds with crackles in the bilateral bases. Maintaining O2 saturations in the 90s on 6 L high flow nasal cannula. I discussed the assessm ent and plan of care with my nurse practitioner, Bekah Arora. I attest to the above note as dictated by her.
--- NOTE | 2021-02-15 16:32 | P.PN ---
Subjective Progress Note Date: 02/15/21 This is a 55-year-old gentleman who was admitted to the hospital with Coban pneumonia and also hypoxic respiratory failure. Patient is known to have hypertension and sleep apnea. His troponins are mildly elevated. His echocardiogram was suboptimal but showed normal LV function without any significant valvular abnormalities. It is felt that abnormal troponins are most probably related to hypoxia. Patient is not having any chest pain. At this point continue medical therapy and treatment of: Pneumonia. We'll be seeing him as needed Objective - Vital Signs Vital signs: Vital Signs Temp 97.2 F L 02/15/21 15:25 Pulse 69 02/15/21 15:25 Resp 20 02/15/21 15:25 BP 158/90 02/15/21 15:25 Pulse Ox 92 L 02/15/21 15:25 Intake & Output 02/14/21 02/15/21 02/15/21 18:59 06:59 18:59 Intake Total 760 1587 1638 Output Total 1100 1350 1450 Balance -340 237 188 Weight 150.3 kg Intake: IV 20 920 Azithromycin 500 mg In 250 Sodium Chloride 0.9% 250 ml @ 250 mls/hr IVPB DAILY [facility] Rx#:[id number] Invasive Line 2 20 20 Sodium Chloride 0.9% 1, 600 000 ml @ 75 mls/hr IV . [id number] [facility] Rx#:[id number] cefTRIAXone 1 gm In 50 Sodium Chloride 0.9% 50 ml @ 100 mls/hr IVPB Q24HR [facility] Rx#:[id number] Intake, IV Titration 750 Amount Sodium Chloride 0.9% 1, 750 000 ml @ 75 mls/hr IV . [id number] [facility] Rx#:[id number] Oral 740 837 718 Output: Urine 1100 1350 1450 - Exam Patient has not personally examined. Because of: Pneumonia, to limit the exposure. Information is gathered from consult and notes and also from the nurses. Patient critical status appears to be relatively stable - Labs CBC & Chem 7: 02/15/21 05:39 02/15/21 05:39 Labs: Abnormal Lab Results - Last 24 Hours (Table) 02/14/21 02/15/21 02/15/21 Range/Units 18:04 05:39 05:39 RBC 4.00 L (4.30-5.90) m/uL Hgb 11.9 L (13.0-17.5) gm/dL Hct 38.1 L (39.0-53.0) % D-Dimer 1.32 H (<0.60) mg/L FEU Carbon Dioxide (22-30) mmol/L Creatinine (0.66-1.25) mg/dL Glucose (74-99) mg/dL Calcium (8.4-10.2) mg/dL ALT (4-49) U/L Lactate Dehydrogenase (313-618) U/L C-Reactive Protein (<1.0) mg/dL Total Protein (6.3-8.2) g/dL Albumin (3.5-5.0) g/dL Coronavirus (PCR) Detected A (Not Detectd) 02/15/21 Range/Units 05:39 RBC (4.30-5.90) m/uL Hgb (13.0-17.5) gm/dL Hct (39.0-53.0) % D-Dimer (<0.60) mg/L FEU Carbon Dioxide 34 H (22-30) mmol/L Creatinine 0.48 L (0.66-1.25) mg/dL Glucose 109 H (74-99) mg/dL Calcium 7.9 L (8.4-10.2) mg/dL ALT 67 H (4-49) U/L Lactate Dehydrogenase 1028 H (313-618) U/L C-Reactive Protein 2.6 H (<1.0) mg/dL Total Protein 6.2 L (6.3-8.2) g/dL Albumin 3.0 L (3.5-5.0) g/dL Coronavirus (PCR) (Not Detectd) Assessment and Plan (1) Troponin level elevated Current Visit: Yes Status: Acute Code(s): R77.8 - OTHER SPECIFIED ABNORMALITIES OF PLASMA PROTEINS SNOMED Code(s): 660380508 (2) COVID-19 Current Visit: Yes Status: Acute Code(s): U07.1 - COVID-19 SNOMED Code(s): 857014971 (3) Hypoxia Current Visit: Yes Status: Acute Code(s): R09.02 - HYPOXEMIA SNOMED Code(s): 508058614 Plan: Abnormal troponins is most probably related to hypoxia related to Covid pneumonia. Echo Cardigan showed preserved LV function, the study is limited. Continue current medical therapy. We'll follow as needed
[2021-02-15 21:37] LABS: Glucose,Whole Blood 117 mg/dL (75-99)
[2021-02-15 23:24] VITALS: RESP 18
[2021-02-16 06:13] LABS: Glucose,Whole Blood 82 mg/dL (75-99)
[2021-02-16 06:24] LABS: Basophils % (A) 0 %; Eosinophils % (A) 0 %; HCT 41.4 % (39.0-53.0); HGB 12.9 gm/dL (13.0-17.5); Hypochromasia Slight; Lymphocytes # (A) 1.3 k/uL (1.0-4.8); Lymphocytes % (A) 17 %; MCH 29.9 pg (25.0-35.0); MCHC 31.2 g/dL (31.0-37.0); Mean Platelet Volume 8.1; Monocytes # (A) 0.5 k/uL (0-1.0); Monocytes % (A) 6 %; Neutrophils # (A) 5.5 k/uL (1.3-7.7); Neutrophils % (A) 73 %; Platelet Count 273 k/uL (150-450); RBC 4.31 m/uL (4.30-5.90); RDW 13.5 % (11.5-15.5); WBC 7.6 k/uL (3.8-10.6)
[2021-02-16 06:58] LABS: ALT 54 U/L (4-49); African American GFR (CKD) >90 (>60 ml/min/1.73 sqM); Albumin 3.4 g/dL (3.5-5.0); Anion Gap 8 mmol/L; Bilirubin, Delta 0.3 mg/dL (0.0-0.2); Bilirubin,Unconjugated 0.3 mg/dL (0.0-1.1); Blood Urea Nitrogen 18 mg/dL (9-20); Calcium 8.5 mg/dL (8.4-10.2); Carbon Dioxide 33 mmol/L (22-30); Chloride 100 mmol/L (98-107); Glucose 87 mg/dL (74-99); Non-African American GFR(CKD) >90 (>60 ml/min/1.73 sqM); Sodium 141 mmol/L (137-145); Total Bilirubin 0.6 mg/dL (0.2-1.3); Total Protein 6.7 g/dL (6.3-8.2)
[2021-02-16 07:01] LABS: AST 44 U/L (17-59); Alkaline Phosphatase 114 U/L (38-126); Magnesium 2.1 mg/dL (1.6-2.3); Potassium 4.2 mmol/L (3.5-5.1)
--- NOTE | 2021-02-16 10:14 | P.PN ---
Subjective Progress Note Date: 02/16/21 Principal diagnosis: This is a 55-year-old male patient with a known history of chronic pain issues and is maintained on methadone in the outpatient setting. He states he's been a ttending a clinic that is requiring [id number] meetings in order to keep his methadone prescription. While there he mentioned he was having cold-like symptoms and had developed fatigue, nausea and diarrhea. He was found to be hypoxemic with O2 saturations in the 60s. He was referred here to the emergency room for the same. He denied any significant shortness of breath cough or congestion. No chest pain. He states his original symptoms started about 2 weeks ago now. He did test positive for Carter virus by PCR. Chest x-ray reveals moderate pulmonary interstitial and airspace edema/infiltrate. CT angiogram revealed no evidence of pulmonary embolism. There is mediastinal bronchial adenopathy. There is extensive pulmonary infiltrates. Of note, the patient had a previous empyema requiring surgery and chest tube placement back in 2012. He is currently on 6 L high flow nasal cannula to maintain O2 saturation in the 90s. He is a smoker. He is not vaccinated. Outside the window for Remdesivir. He's been initiated on antibiotics per medicine. He is on Decadron, Lovenox. The patient is seen today 02/15/2021 in follow-up on the selective care unit. He is currently resting quite comfortably in bed. Actually laying flat. Denies any worsening shortness of breath, cough or congestion. He is requiring 6 L high flow nasal cannula to maintain O2 saturations in the 90s. No fever or chills. White count 5.8. Hemoglobin 11.9. D-dimer 1.32. Sodium 141. Potassium 3.8. Creatinine 0.48. LDH 1028. C-reactive protein 2.6. Procalcitonin 3.09. He remains on ceftriaxone and azithromycin. Continued on Decadron, Lovenox, vitamin supplements. He's been initiated on IV diuretics. The patient is seen today 02/16/2021 in follow-up on the selective care unit. He is currently resting comfortably in bed. Awake and alert in no acute distress. Maintaining O2 saturations in the 90s on 3 L/m per nasal cannula. White count 7.6. Hemoglobin 12.9. Sodium 141. Potassium 4.2. Creatinine 0.50. He is continued on ceftriaxone and azithromycin. Maintained on Decadron, Lovenox, vitamin supplements. Continued on IV diuretics. And a slightly positive balance. Weight remains the same at 150 kg. Objective - Vital Signs Vital signs: Vital Signs Temp 98.0 F 02/16/21 04:00 Pulse 50 L 02/16/21 04:00 Resp 18 02/16/21 04:00 BP 144/83 02/16/21 04:00 Pulse Ox 93 L 02/16/21 04:00 Intake & Output 02/15/21 02/16/21 02/16/21 18:59 06:59 18:59 Intake Total 2238 118 Output Total 1450 500 Balance 788 -500 118 Weight 150.3 kg 150 kg Intake: IV 920 Azithromycin 500 mg In 250 Sodium Chloride 0.9% 250 ml @ 250 mls/hr IVPB DAILY [facility] Rx#:[id number] Invasive Line 2 20 Sodium Chloride 0.9% 1, 600 000 ml @ 75 mls/hr IV . [id number] [facility] Rx#:[id number] cefTRIAXone 1 gm In 50 Sodium Chloride 0.9% 50 ml @ 100 mls/hr IVPB Q24HR [facility] Rx#:[id number] Oral 1318 118 Output: Urine 1450 500 Other: # Voids 1 - Exam GENERAL EXAM: Alert, pleasant 55-year-old gentleman, on 3 L nasal cannula comfortable in no apparent distress. HEAD: Normocephalic. EYES: Normal reaction of pupils, equal size. NOSE: Clear with pink turbinates. THROAT: No erythema or exudates. NECK: No masses, no JVD. CHEST: No chest wall deformity. LUNGS: Equal air entry with crackles in the bilateral bases. CVS: S1 and S2 normal with no audible murmur, regular rhythm. ABDOMEN: No hepatosplenomegaly, normal bowel sounds, no guarding or rigidity. SPINE: No scoliosis or deformity SKIN: No rashes CENTRAL NERVOUS SYSTEM: No focal deficits, tone is normal in all 4 extremities. EXTREMITIES: There is no peripheral edema. No clubbing, no cyanosis. Peripheral pulses are intact. - Labs CBC & Chem 7: 02/16/21 05:44 02/16/21 05:44 Labs: Abnormal Lab Results - Last 24 Hours (Table) 02/15/21 02/16/21 02/16/21 Range/Units 21:36 05:44 05:44 Hgb 12.9 L (13.0-17.5) gm/dL Carbon Dioxide 33 H (22-30) mmol/L Creatinine 0.50 L (0.66-1.25) mg/dL POC Glucose (mg/dL) 117 H (75-99) mg/dL Delta Bilirubin 0.3 H (0.0-0.2) mg/dL ALT 54 H (4-49) U/L Albumin 3.4 L (3.5-5.0) g/dL Assessment and Plan Assessment: 1 Acute hypoxemic respiratory failure secondary to COVID-19 pneumonia. Outside the window for Remdesivir. Currently on 3 L high flow nasal cannula. Not qualifying for Baricitinib. Not vaccinated. Elevated pro calcitonin and remains on azithromycin and ceftriaxone. 2 Chronic pain secondary to osteoarthritis and several orthopedic surgeries receiving methadone in the outpatient setting 3 Chronic tobacco dependence 4 Previous history of suspected empyema of the right lung requiring surgery and chest tube placement back in 2012 5 Obstructive sleep apnea, not on CPAP 6 Troponin leak Plan: The patient was seen and evaluated today Continue Lovenox, Decadron, vitamin supplements Elevated pro-calcitonin, on ceftriaxone and azithromycin Elevated proBNP,on IV Lasix Echocardiogram still pending Titrate the FiO2 as tolerated Follow-up chest x-ray pending We will continue to follow I, the cosigning physician, performed a history & physical examination of the patient. Lungs sounds with crackles in the bilateral bases. Maintaining O2 saturations in the 90s on 3 L high flow nasal cannula. I discussed the assessment and plan of care with my nurse practitioner, Bekah Arora. I attest to the above note as dictated by her.
[2021-02-16] MEDS: FUROSEMIDE 10 MG/ML 4 ML VIAL IV SCH (10:22)
[2021-02-16] MEDS: DEXAMETHASONE SOD PHOSPHATE 10 MG/ML 1 ML VIAL IVP SCH (10:22)
[2021-02-16] MEDS: CHOLECALCIFEROL 25 MCG (1000 IU) TABLET PO SCH (10:23)
[2021-02-16] MEDS: ZINC SULFATE 220 MG CAP PO SCH (10:23)
[2021-02-16] MEDS: ENOXAPARIN 40 MG/0.4 ML SYRINGE SQ SCH (10:23)
[2021-02-16] MEDS: METHADONE 10 MG TAB PO SCH (10:23)
[2021-02-16] MEDS: lisinopriL 5 MG TAB PO SCH (10:23)
[2021-02-16] MEDS: AZITHROMYCIN 500 MG in SODIUM CHLORIDE 0.9% 250 ML IVPB SCH (10:29)
[2021-02-16] MEDS: ASCORBIC ACID 500 MG TAB PO SCH (10:29)
--- NOTE | 2021-02-16 10:49 | XR ---
EXAMINATION TYPE: XR chest 1V portable DATE OF EXAM: 02/16/2021 COMPARISON: 02/13/2021 HISTORY: 55 years Male. STUDY INDICATION GIVEN: CoVID, CHF . TECHNIQUE: AP upright chest radiograph IMPRESSION: Interval decrease in bilateral interstitial and airspace opacities. Airspace opacities are predominan tly in the right lower lobe. Small right effusion. No left effusion or pneumothorax. Nonenlarged cardiomediastinal silhouette. Stable osseous structures.
[2021-02-16 11:34] LABS: Glucose,Whole Blood 93 mg/dL (75-99)
[2021-02-16] MEDS: SODIUM CHLORIDE 0.9% 1,000 ML IV SCH (11:52)
--- NOTE | 2021-02-16 12:16 | P.PN ---
Subjective Progress Note Date: 02/16/21 Hospital course: Patient is a 55-year-old male who presented to the hospital on 02/13/21 for evaluation of hypoxia that was noted at urgent care center where he was evaluated for reports of fatigue, vomiting, and diarrhea. Patient was diagnosed with Covid 19 virus infection and admitted under our services for acute hypoxemic respiratory failure secondary to ARDS resulting from Covid 19 virus infection as well as acute on chronic heart failure of unknown type. Physical exam: Patient was seen and fully evaluated at the bedside this morning. He was resting comfortably on 3 L O2 via nasal cannula maintaining SpO2 of 93%. Patient reports feeling well this morning and denies having any shortness of breath at rest or chest pain. Morning labs reviewed. CBC unremarkable BMP revealing mild hypercarbia with CO2 33 and liver profile revealing a slightly elevated total bilirubin of 0.3. Total urinary output over the past 24 hours was 1950 mL's. Vital signs reviewed and stable. General: Nontoxic, no distress and appears stated age. Derm: Skin warm and dry, normal coloration for ethnicity. Head: Atraumatic, normocephalic and symmetric. Eyes: EOMs intact, no lid lag, and anicteric sclera Mouth: no lip lesions, mucus membranes moist Cardiovascular: regular rate and rhythm with normal S1S2, no murmur, positive posterior tibial pulses bilaterally, and cap refill < 2 seconds. Lungs: Respirations even, regular, and unlabored on 3 L O2 via nasal cannula. Lungs with bibasilar crackles, no rales, no wheezing, and no accessory muscle usage. Abdominal: soft, nontender to palpation, no guarding, no appreciable organomegaly Ext: ROM intact. No gross muscle atrophy, no edema, no contractures Neuro: Speech clear, face symmetrical and CN II-XII grossly intact with no noted focal neuro deficits Psych: Alert and oriented to person, place, time, and situation. Appropriate and pleasant affect. Assessment and Plan of Care: ARDS secondary to Covid 19 Acute hypoxemic respiratory failure Acute on Chronic Heart Failure, unspecified EF, echocardiogram results pending Acute respiratory failure with hypoxia secondary to COVID 19 pneumonia -Oxygenation to be administered and titrated as needed to maintain SPO2 equal to or greater than 90% -Telemetry monitoring. -Continue trending inflammatory markers and electrolytes -Encourage Incentive Spirometry 10-15x hourly while awake -Steroids: Decadron 6 mg daily -Continue vitamin C, Vitamin D, and Zinc. -Pulmonology following, appreciate further recommendations. -DVT prophylaxis with Lovenox. -Strict Droplet plus Contact precautions -IV antibiotics azithromycin and Rocephin secondary to elevated pro-calcitonin of 3.09. -Lasix 40 mg IVP daily with close monitoring of I's and O's and daily weights Obesity class III with BMI of 52.6 kg/m Chronic pain -Outpatient weight loss referral -Resume home dose of methadone CODE STATUS: Full code DVT prophylaxis: Lovenox Discussed with: Patient and RN Anticipated discharge date: Clinical course to determine, likely Thursday Anticipated discharge place: Home A total of 40 minutes was spent on the care of this complex patient more than 50% of the time was spent in counseling and care coordination. Objective - Vital Signs Vital signs: Vital Signs Temp 98.0 F 02/16/21 04:00 Pulse 50 L 02/16/21 04:00 Resp 18 02/16/21 04:00 BP 144/83 02/16/21 04:00 Pulse Ox 93 L 02/16/21 04:00 Intake & Output 02/15/21 02/16/21 02/16/21 18:59 06:59 18:59 Intake Total 2238 Output Total 1450 500 Balance 788 -500 Weight 150.3 kg 150 kg Intake: IV 920 Azithromycin 500 mg In 250 Sodium Chloride 0.9% 250 ml @ 250 mls/hr IVPB DAILY [facility] Rx#:[id number] Invasive Line 2 20 Sodium Chloride 0.9% 1, 600 000 ml @ 75 mls/hr IV . [id number] [facility] Rx#:[id number] cefTRIAXone 1 gm In 50 Sodium Chloride 0.9% 50 ml @ 100 mls/hr IVPB Q24HR [facility] Rx#:[id number] Oral 1318 Output: Urine 1450 500 - Labs CBC & Chem 7: 02/16/21 05:44 02/16/21 05:44 Labs: Abnormal Lab Results - Last 24 Hours (Table) 02/15/21 02/15/21 02/16/21 Range/Units 05:39 21:36 05:44 Hgb 12.9 L (13.0-17.5) gm/dL Carbon Dioxide 34 H (22-30) mmol/L Creatinine 0.48 L (0.66-1.25) mg/dL Glucose 109 H (74-99) mg/dL POC Glucose (mg/dL) 117 H (75-99) mg/dL Calcium 7.9 L (8.4-10.2) mg/dL Delta Bilirubin (0.0-0.2) mg/dL ALT 67 H (4-49) U/L Lactate Dehydrogenase 1028 H (313-618) U/L C-Reactive Protein 2.6 H (<1.0) mg/dL Total Protein 6.2 L (6.3-8.2) g/dL Albumin 3.0 L (3.5-5.0) g/dL 02/16/21 Range/Units 05:44 Hgb (13.0-17.5) gm/dL Carbon Dioxide 33 H (22-30) mmol/L Creatinine 0.50 L (0.66-1.25) mg/dL Glucose (74-99) mg/dL POC Glucose (mg/dL) (75-99) mg/dL Calcium (8.4-10.2) mg/dL Delta Bilirubin 0.3 H (0.0-0.2) mg/dL ALT 54 H (4-49) U/L Lactate Dehydrogenase (313-618) U/L C-Reactive Protein (<1.0) mg/dL Total Protein (6.3-8.2) g/dL Albumin 3.4 L (3.5-5.0) g/dL
[2021-02-17] MEDS: lisinopriL 5 MG TAB PO SCH (08:09)
[2021-02-17] MEDS: ZINC SULFATE 220 MG CAP PO SCH (08:10)
[2021-02-17] MEDS: DEXAMETHASONE SOD PHOSPHATE 10 MG/ML 1 ML VIAL IVP SCH (08:10)
[2021-02-17] MEDS: ASCORBIC ACID 500 MG TAB PO SCH (08:10)
[2021-02-17] MEDS: CHOLECALCIFEROL 25 MCG (1000 IU) TABLET PO SCH (08:10)
[2021-02-17] MEDS: FUROSEMIDE 10 MG/ML 4 ML VIAL IV SCH (08:11)
[2021-02-17] MEDS: ENOXAPARIN 40 MG/0.4 ML SYRINGE SQ SCH (08:11)
[2021-02-17 08:18] LABS: Glucose,Whole Blood 104 mg/dL (75-99)
[2021-02-17] MEDS: METHADONE 10 MG TAB PO SCH (09:27)
[2021-02-17 09:33] LABS: HCT 40.7 % (39.6-50.0); HGB 12.9 g/dL (13.0-17.0); MCH 29.7 pg (27.0-32.0); MCHC 31.7 g/dL (32.0-37.0); MCV 93.8 fL (80.0-97.0); Mean Platelet Volume 9.8 fL (9.5-12.2); Platelet Count 281 X 10*3/uL (140-440); RBC 4.34 X 10*6/uL (4.40-5.60); RDW 13.1 % (11.5-14.5); WBC 6.78 X 10*3/uL (4.50-10.00)
[2021-02-17 09:41] LABS: African American GFR (CKD) 128.5 (60.0-200.0); Albumin 3.6 g/dL (3.8-4.9); Albumin/Globulin Ratio 1.23 (1.60-3.17); Anion Gap 13.2 mmol/L (10.00-18.00); BUN/Creat Ratio 29.02 Ratio (12.00-20.00); Blood Urea Nitrogen 17.7 mg/dL (9.0-27.0); C Reactive Protein 0.4 mg/dL (0.00-0.80); Calcium 8.6 mg/dL (8.7-10.3); Carbon Dioxide 29.7 mmol/L (20.0-27.5); Globulin 2.9 g/dL (1.6-3.3); Magnesium 2.2 mg/dL (1.5-2.4); Non-African American GFR(CKD) 110.9 (60.0-200.0); Potassium 3.9 mmol/L (3.5-5.5); Total Bilirubin 0.6 mg/dL (0.30-1.20); Total Protein 6.5 g/dL (6.2-8.2)
[2021-02-17] MEDS: AZITHROMYCIN 500 MG in SODIUM CHLORIDE 0.9% 250 ML IVPB SCH (10:51)
--- NOTE | 2021-02-17 11:14 | P.PN ---
Subjective Progress Note Date: 02/17/21 Principal diagnosis: COVID-19 pneumonia, shortness of breath This is a 55-year-old male patient with a known history of chronic pain issues and is maintained on methadone in the outpatient setting. He states he's been attending a clinic that is requiring [id number] meetings in order to keep his methadone prescription. While there he mentioned he was having cold-like sympto ms and had developed fatigue, nausea and diarrhea. He was found to be hypoxemic with O2 saturations in the 60s. He was referred here to the emergency room for the same. He denied any significant shortness of breath cough or congestion. No chest pain. He states his original symptoms started about 2 weeks ago now. He did test positive for Carter virus by PCR. Chest x-ray reveals moderate pulm onary interstitial and airspace edema/infiltrate. CT angiogram revealed no evidence of pulmonary embolism. There is mediastinal bronchial adenopathy. There is extensive pulmonary infiltrates. Of note, the patient had a previous empyema requiring surgery and chest tube placement back in 2012. He is currently on 6 L high flow nasal cannula to maintain O2 saturation in the 90s. He is a smoker. He is not vaccinated. Outside the window for Remdesivir. He's been initiated on antibiotics per medicine. He is on Decadron, Lovenox. The patient is seen today 02/15/2021 in follow-up on the selective care unit. He is currently resting quite comfortably in bed. Actually laying flat. Denies any worsening shortness of breath, cough or congestion. He is requiring 6 L high flow nasal cannula to maintain O2 saturations in the 90s. No fever or chills. White count 5.8. Hemoglobin 11.9. D-dimer 1.32. Sodium 141. Potassium 3.8. Creatinine 0.48. LDH 1028. C-reactive protein 2.6. Procalcitonin 3.09. He remains on ceftriaxone and azithromycin. Continued on Decadron, Lovenox, vitamin supplements. He's been initiated on IV diuretics. The patient is seen today 02/16/2021 in follow-up on the selective care unit. He is currently resting comfortably in bed. Awake and alert in no acute distress. Maintaining O2 saturations in the 90s on 3 L/m per nasal cannula. White count 7.6. Hemoglobin 12.9. Sodium 141. Potassium 4.2. Creatinine 0.50. He is continued on ceftriaxone and azithromycin. Maintained on Decadron, Lovenox, vitamin supplements. Continued on IV diuretics. And a slightly positive balance. Weight remains the same at 150 kg. On 02/17/2001 patient seen in follow-up on medical surgical floor. He is awake and alert, does not appear to be in any acute distress, he sitting up and he didn't bed, he states his breathing is improving, lung sounds reveal minimal crackles at bilateral bases, he is on 2 L of oxygen his pulse ox is 92%, breathing comfortably, he was outside the window for Remdesivir, he was also started on azithromycin and Rocephin for possibility of bacterial pneumonia in view of his elevated pro-calcitonin, his proBNP was elevated and patient is on IV diuretics, still has 1+ edema in his bilateral lower extremities. He is diuresing, his net fluid balance is difficult to estimate however his weight is down by 4.6 kg in the last 24 hours. Today his labs have been reviewed, white blood cell count is 6.7, hemoglobin is 12.9, d-dimer is 3.2, electrolytes are unremarkable, BUN is 17 creatinine 0.6. His LDH is improving and is down to 396 on today's labs, and CRP is down to 0.40. Objective - Vital Signs Vital signs: Vital Signs Temp 97.5 F L 02/17/21 08:00 Pulse 66 02/17/21 08:00 Resp 18 02/17/21 08:00 BP 142/79 02/17/21 08:00 Pulse Ox 92 L 02/17/21 11:01 Intake & Output 02/16/21 02/17/21 02/17/21 18:59 06:59 18:59 Intake Total 398 500 Output Total 860 Balance 398 500 -860 Weight 145.4 kg Intake: IV 20 Invasive Line 2 20 Oral 378 500 Output: Urine 860 Other: Voiding Method Toilet Urinal # Voids 1 3 # Bowel Movements 0 - Exam GENERAL EXAM: Alert, pleasant, 55-year-old obese white male on 2 L of oxygen pulse ox of 92% sitting up in bed, comfortable in no apparent distress. HEAD: Normocephalic/atraumatic. EYES: Normal reaction of pupils, equal size. Conjunctiva pink, sclera white. NOSE: Clear with pink turbinates. THROAT: No erythema or exudates. NECK: No masses, no JVD, no thyroid enlargement, no adenopathy. CHEST: No chest wall deformity. Symmetrical expansion. LUNGS: Equal air entry with bilateral crackles CVS: Regular rate and rhythm, normal S1 and S2, no gallops, no murmurs, no rubs ABDOMEN: Soft, nontender. No hepatosplenomegaly, normal bowel sounds, no guarding or rigidity. EXTREMITIES: No clubbing, 1+ lower extremity edema, right greater than left, no cyanosis, 2+ pulses and upper and lower extremities. MUSCULOSKELETAL: Muscle strength and tone normal. SPINE: No scoliosis or deformity SKIN: No rashes CENTRAL NERVOUS SYSTEM: Alert and oriented -3. No focal deficits, tone is normal in all 4 extremities. PSYCHIATRIC: Alert and oriented -3. Appropriate affect. Intact judgment and insight. - Labs CBC & Chem 7: 02/17/21 05:23 02/17/21 05:23 Labs: Abnormal Lab Results - Last 24 Hours (Table) 02/17/21 02/17/21 02/17/21 Range/Units 05:23 05:23 05:23 RBC 4.34 L (4.40-5.60) X 10*6/uL Hgb 12.9 L (13.0-17.0) g/dL MCHC 31.7 L (32.0-37.0) g/dL D-Dimer 3.20 H (<0.60) mg/L FEU Carbon Dioxide 29.7 H (20.0-27.5) mmol/L BUN/Creatinine Ratio 29.02 H (12.00-20.00) Ratio POC Glucose (mg/dL) (75-99) mg/dL Calcium 8.6 L (8.7-10.3) mg/dL AST 40 H (14-35) U/L ALT 55 H (10-49) U/L Lactate Dehydrogenase 396 H (120-246) U/L Albumin 3.6 L (3.8-4.9) g/dL Albumin/Globulin Ratio 1.23 L (1.60-3.17) g/dL 02/17/21 Range/Units 08:07 RBC (4.40-5.60) X 10*6/uL Hgb (13.0-17.0) g/dL MCHC (32.0-37.0) g/dL D-Dimer (<0.60) mg/L FEU Carbon Dioxide (20.0-27.5) mmol/L BUN/Creatinine Ratio (12.00-20.00) Ratio POC Glucose (mg/dL) 104 H (75-99) mg/dL Calcium (8.7-10.3) mg/dL AST (14-35) U/L ALT (10-49) U/L Lactate Dehydrogenase (120-246) U/L Albumin (3.8-4.9) g/dL Albumin/Globulin Ratio (1.60-3.17) g/dL Assessment and Plan Plan: Assessment: #1. Acute hypoxic respiratory failure related to acute COVID-19 pneumonia and possibility of bacterial pneumonia is also likely based on elevated pro calcitonin level. Patient was outside of the window for Remdesivir, is currently on Decadron, he is on azithromycin and Rocephin, and IV diuretics. He is on 2 L of oxygen today on 02/17/2021 #2. Fluid overload, on diuretics, maintaining negative fluid balance #3. Elevated inflammatory markers related to acute COVID-19 pneumonia improving #4. Obstructive sleep apnea #5. Morbid obesity with BMI of 51 kg/m #6. Osteoarthritis #7. Chronic pain syndrome secondary to osteoarthritis, status post several orthopedic surgeries receiving methadone in the outpatient setting #8. Previous history of right lung empyema requiring surgery and chest tube placement back in 2012 #9. Troponin leak, and it was felt that this was related to hypoxia, echocardiogram showed preserved LV function. Cardiology is following Plan: Continue Decadron Continue azithromycin and Rocephin and IV diuretics FiO2 requirements overall have improved since admission and patient is currently down to 2 L Breathing easier vital signs have been stable Inflammatory markers are improving Yesterday's chest x-ray has been reviewed showing improvement and bilateral interstitial and airspace opacities We'll continue to follow his clinical course I performed a history & physical examination of the patient and discussed their management with my nurse practitioner, Kendra Lopez. I reviewed the nurse practitioner's note and agree with the documented findings and plan of care. Lung sounds are positive for bibasilar rales throughout the lung amaya. The findings and the impression was discussed with the patient. I attest to the documentation by the nurse practitioner. Time with Patient: Less than 30
[2021-02-17 11:21] LABS: Glucose,Whole Blood 98 mg/dL (75-99)
--- NOTE | 2021-02-17 13:04 | P.DS ---
Providers Date of admission: 02/13/21 17:21 Expected date of discharge: 02/17/21 Attending physician: Thuy Recio MD Consults: 02/13/21 17:22 Consult Physician Routine Consulting Provider: David Linares Consult Reason/Comments: COVID< PNA Do you want consulting provider notified?: Yes 02/13/21 19:57 Consult Physician Routine Consulting Provider: Steven Elizabeth Consult Reason/Comments: elevated trop Do you want consulting provider notified?: Yes Primary care physician: Stated None Hospital Course: Discharge Diagnosis: COVID-19 Viral and Bacterial Pneumonia Acute Hypoxic respiratory failure Heart Failure ruled out Elevated Troponin due to hypoxia Obesity Class III with BMI 52.6 Chronic Pain Tobacco abuse Hospital Course: Patient is a 55-year-old male with a history of chronic pain, tobacco abuse, osteoarthritis, and obstructive sleep apnea who presented with complaint of shortness of breath. He was seen at urgent care and was found to be hypoxic in the 60s and was therefore sent to the hospital. He was subsequently found to have 19 pneumonia. He underwent an CT PE protocol which showed no evidence of pulmonary embolism but was consistent with bilateral interstitial infiltrates. Laboratory analysis showed mildly elevated troponin at 0.093 elevated AST at 100, ALT 96, alkaline phosphatase 142, His pro-calcitonin was mildly elevated at 3.09. He was started on antibiotics for possible component of bacterial pneumonia. He was seen by pulmonary and continued on Decadron, zinc, vitamin C, and vitamin D. On presentation his oxygen requirements were 6 L/m via nasal cannula and was decreased to 2 L/m. He was seen by cardiology and was felt that his elevated troponins were secondary to hypoxemia. He underwent a limited echo which per cardiology notes showed preserved ejection fraction and asked that he follow-up in the clinic. He was feeling back to his normal self and doing well on 02/17 area and home O2 eval was performed at rest his O2 was 86% on room air. He therefore will need home oxygen on discharge until he has fully recovered from COVID-19. Follow-up: Dr. Epperson with pulmonology in 2 weeks to reassess oxygen needs, Dr. Graham with cardiology. PCP should be established and I have suggested Dr. Parks. He will need home O2 on discharge. Patient also follow-up with his clinic. He did require methadone during his hospital stay. Patient seen and examined at bedside. Feeling well. Wants to go home. He states the shortness of breath is resolved and he has been ambulating without difficulty. He has good oral intake. He denies any nausea vomiting or diarrhea. Vital signs reviewed and stable. General: non toxic, no distress, appears at stated age Derm: warm, dry Head: atraumatic, normocephalic, symmetric Eyes: EOMI, no lid lag, anicteric sclera Mouth: no lip lesion, mucus membranes moist Cardiovascular: S1S2 reg, no murmur, positive posterior tibial pulse bilateral, Lungs: Decreased bs bilateral, no rhonchi, no rales , no accessory muscle use Abdominal: soft, nontender to palpation, no guarding, no appreciable organomeg barbi Ext: no gross muscle atrophy, no edema, no contractures Neuro: CN II-XI grossly intact, no focal neuro deficits Psych: Alert, oriented, appropriate affect A total of 42 minutes of time were spent preparing this complex discharge summary . Patient Condition at Discharge: Stable Plan - Discharge Summary Discharge Rx Participant: No New Discharge Prescriptions: New Dexamethasone [Decadron] 6 mg PO DAILY #5 tablet Methadone [Dolophine] 140 mg PO DAILY tab Cefdinir [Omnicef] 300 mg PO Q12HR #6 capsule Azithromycin [Zithromax] 500 mg PO DAILY 4 Days #4 tab Aspirin 325 mg PO DAILY #30 tab Ascorbic Acid [Vitamin C] 1,000 mg PO DAILY tab Cholecalciferol [Vitamin D3 (25 Mcg = 1000 Iu)] 25 mcg PO DAILY tablet Discontinued Methadone [Dolophine] 140 mg PO DAILY Discharge Medication List Ascorbic Acid [Vitamin C] 1,000 mg PO DAILY tab 02/17/21 [Rx] Aspirin 325 mg PO DAILY #30 tab 02/17/21 [Rx] Azithromycin [Zithromax] 500 mg PO DAILY 4 Days #4 tab 02/17/21 [Rx] Cefdinir [Omnicef] 300 mg PO Q12HR #6 capsule 02/17/21 [Rx] Cholecalciferol [Vitamin D3 (25 Mcg = 1000 Iu)] 25 mcg PO DAILY tablet 02/17/21 [Rx] Dexamethasone [Decadron] 6 mg PO DAILY #5 tablet 02/17/21 [Rx] Methadone [Dolophine] 140 mg PO DAILY tab 02/17/21 [Rx] Follow up Appointment(s)/Referral(s): [place] Epperson MD [STAFF PHYSICIAN] - 2 Weeks None,Stated [Primary Care Provider] - 1-2 days Lovely Graham MD [STAFF PHYSICIAN] - 2 Weeks Catrachito Parks [STAFF PHYSICIAN] - 1 Week Patient Instructions/Handouts: Coronavirus Disease 2019 (COVID-19) Activity/Diet/Wound Care/Special Instructions: Activity: As tolerated Diet: Heart Healthy Special Instructions: Derek Gandara has been taking his methadone while hospitalized. He has not missed any doses. Return if worsening shortness of breath, fevers, lethargy Quarantine ends 10 days after your symptom onset. Discharge/Stand Alone Forms: Work/Release Restrictions Form Discharge Disposition: HOME SELF-CARE
[2021-02-17 16:38] LABS: Glucose,Whole Blood 101 mg/dL (75-99)
[2021-02-17 18:50] VITALS: BP 138/84; PULSE 67; TEMP 97.7
== END 2021-02-17 19:06 | disposition home or self-care (01) | DRG 177 ==
LOC: EC 17:12 → 3SCARD 17:21 → 4SSUR 02-16 13:40
PROVIDERS: ADMIT Internal Medicine; ATTEND Internal Medicine
DX: U07.1 COVID-19 (principal); J12.82 Pneumonia due to coronavirus disease 2019; J15.9 Unspecified bacterial pneumonia; J96.01 Acute respiratory failure with hypoxia; J93.9 Pneumothorax, unspecified; Z68.43 Body mass index [BMI] 50.0-59.9, adult; Z16.24 Resistance to multiple antibiotics; E66.01 Morbid (severe) obesity due to excess calories; E87.6 Hypokalemia; F17.200 Nicotine dependence, unspecified, uncomplicated; G47.33 Obstructive sleep apnea (adult) (pediatric); G89.4 Chronic pain syndrome; M19.90 Unspecified osteoarthritis, unspecified site; Z79.891 Long term (current) use of opiate analgesic; Z80.0 Family history of malignant neoplasm of digestive organs; Z96.641 Presence of right artificial hip joint; M54.30 Sciatica, unspecified side; I10 Essential (primary) hypertension; E87.70 Fluid overload, unspecified
CPT/HCPCS: 36415; 71045; 71275; 80048; 80053; 80076; 83605; 83615; 83735; 83880; 84145; 84484; 85025; 85027; 85379; 85610; 85730; 86140; 87635; 93005; 93306; 99291